=== PATIENT | female | born 1980 | race Caucasian/White ===

== ENCOUNTER 2016-03-21 00:43 | Emergency (ER) | payer OTHER ==
[~2016-03-21] VITALS: Ht 160 cm; Wt 77.1 kg
[~2016-03-21 00:43] MED LIST: LIORESAL 10MG T10 MG PO; MOTRIN 600 MG600 MG PO; ULTRAM(MONOGRAP50 MG PO
[2016-03-21 00:58] VITALS: BP 114/79
--- NOTE | 2016-03-21 01:27 | ED EYE COMPLAINT ---
History of Present Illness General Chief Complaint: Allergy Symptoms Stated Complaint: ? ALLERGIC REACTION EYES SWELLING PER PT Source: patient Exam Limitations: no limitations Vital Signs & Intake/Output Vital Signs & Intake/Output Vital Signs Date Time Temp Pulse Resp B/P Pulse O2 O2 Flow FiO2 Ox Delivery Rate 03/21 0058 98.4 100 18 114/79 97 Allergies Coded Allergies: erythromycin base (From Erythrocin) (NAUSEA/VOMITING 03/21/16) Reconcile Medications Baclofen (Lioresal) 10 MG TABLET 1 TAB PO TIDPRN PRN muscle strain Ibuprofen (Motrin 600 MG Tab) 600 MG TABLET 1 TAB PO Q6P PRN PAIN Olopatadine HCl (Pataday) 0.2 % DROPS 2 GTT OPH TID PRN allergic conjunctivitis as needed for itchy eyes Prednisone 50 MG TABLET 1 TAB PO DAILY allergic conjunctivitis Tramadol HCl (Ultram) 50 MG TABLET 1 TAB PO Q6 PRN severe pain Triage Note: SEE NURSES NOTE Triage Nurses Notes Reviewed? yes Onset: Gradual Duration: hour(s): Timing: single episode today Injury Environment: home Severity: mild Modifying Factors: Improves With: medication. : No Patient currently breastfeeds: No HPI: 35 yo woman with bilateral eye redness and itchiness for the past few hours of uncertain etiology. "I was watching tv and then both my eyes slowly started to itch and water... My eyes seemed to puff up." No changes in vision. No fever, chills, dyspnea, wheezing. She is otherwise well. Past History Travel History Traveled to [place] past 21 day No Medical History Any Pertinent Medical History? 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 No Review of Systems Review of Systems Constitutional: Reports: no symptoms. Eyes: Reports: no symptoms. Ear: Reports: no symptoms. Nose: Reports: no symptoms. Mouth: Reports: no symptoms. Throat: Reports: no symptoms. Respiratory: Reports: no symptoms. Cardiovascular: Reports: no symptoms. GI: Reports: no symptoms. Genitourinary: Reports: no symptoms. Musculoskeletal: Reports: no symptoms. Skin: Reports: no symptoms. Neurological/Psychological: Reports: no symptoms. Hematologic/Endocrine: Reports: no symptoms. Immunologic/Allergic: Reports: no symptoms. All Other Systems: Reviewed and Negative Physical Exam General Appearance: well developed/nourished, mild distress General Inspection: normal inspection Eyelid: mild edema of lid Conjunctiva/Sclera: sclearal edema, no purulent discharge. Cornea: normal inspection EOM: intact Pupil: normal accommodation, normal pupil, PERRL General Inspection: normal inspection Eyelid: mild edema Conjunctiva/Sclera: corneal edema with clear discharge. not purulent Cornea: corneal edema EOM: intact Pupil: normal accommodation, normal pupil, PERRL Physical Exam Head: atraumatic, normal appearance Ears: Bilateral: canal normal, Tympanic normal. Nose: normal inspection Mouth/Throat: normal mouth inspection, pharynx normal Neck: normal inspection, supple, full range of motion Cardiovascular/Respiratory: normal breath sounds Neurologic/Psych: no motor/sensory deficits, awake, alert, oriented x 3 Skin: intact, normal color, warm/dry Progress Differential Diagnosis: allergic conjunctivitis Plan of Care: gave benadryl... wrote rx for pataday and rx for prednisone if not better in next few hours... referred to optho. Departure Departure Disposition: HOME OR SELF CARE Condition: Stable Clinical Impression Primary Impression: Allergic conjunctivitis Referrals: RANDEE JULES,JOSE J Bruner (PCP/Family) Departure Forms: Customer Survey General Discharge Information Prescriptions: Current Visit Scripts Prednisone 1 TAB PO DAILY #3 TAB Olopatadine HCl (Pataday) 2 GTT OPH TID PRN allergic conjunctivitis #1 BOT as needed for itchy eyes
[2016-03-21] MEDS ORDERED: PREDNISONE50 M1 PO (01:29)
[2016-03-21] MEDS ORDERED: PATADAY2.5 ML OPH (01:29)
== END 2016-03-21 01:55 ==
LOC: ERH 00:43
DX: H10.13 Acute atopic conjunctivitis, bilateral (principal)